=== PATIENT | male | born 1965 | race Two or more races ===

== ENCOUNTER 2024-02-03 09:20 | Inpatient (IN) | payer OTHER ==
[~2024-02-03] VITALS: Ht 160 cm; Wt 59.4 kg
[2024-02-03] MEDS ORDERED: ATORVASTATIN CA40 MG PO (11:07)
[2024-02-03] MEDS ORDERED: JARDIANCE10 MG PO (11:07)
[2024-02-03] MEDS ORDERED: GLUMETZA500 MG PO (11:08)
[2024-02-03] MEDS ORDERED: HORIZANT300 MG PO (11:08)
[2024-02-03] MEDS ORDERED: CORRECTOL5 MG PO (11:09)
[2024-02-03] MEDS ORDERED: DAILY MULTIVIT1 EAC4 PO (11:09)
[2024-02-03] MEDS ORDERED: DEXTROSE 50 % IN WATER 0.5 G/ML VIAL IV ONE (11:30)
[2024-02-03] MEDS ORDERED: VANCOMYCIN HCL 1,000 MG VIAL IV STA (11:34)
[2024-02-03] MEDS ORDERED: VANCOMYCIN HCL 1,000 MG VIAL ONE (13:12)
[2024-02-03 13:32] LABS: HEMATOCRIT 38.6 % (39.0-48.0); HEMOGLOBIN 12.8 g/dL (13-16.00); MEAN CELL VOLUME 84.3 fL (80.0-100.00); MEAN CORPUSCULAR HEMOGLOBIN 28.1 pg (27.00-32.0); MEAN CORPUSCULAR HGB CONC 33.3 g/dl (32.0-36.0); PLATELET COUNT 212 K/uL (150-450); RED BLOOD COUNT 4.57 M/uL (4.00-6.00); RED CELL DISTRIBUTION WIDTH 14.5 % (11.5-14.5)
[2024-02-03 14:16] LABS: ALBUMIN 3.6 gm/dL (3.4-5.0); BILIRUBIN TOTAL 0.89 mg/dL (0.3-1.2); CALCIUM 10.1 mg/dL (8.5-10.1); CREATININE SERUM 1.12 mg/dL (0.70-1.30); GFR 67.82; POTASSIUM 4.35 mEq/L (3.5-5.1); TOTAL PROTEIN 8.8 gm/dL (6.4-8.2)
[2024-02-03 14:28] LABS: BILIRUBIN,CONJUGATED 0.2 mg/dL (0.0-0.2); BILIRUBIN,UNCONJUGATED 0.69 mg/dL (0.0-0.6)
[2024-02-03] MEDS ORDERED: INSULIN REGULAR, HUMAN 1,000 UNIT/10 ML UNITS IV STA (15:48)
[2024-02-03] MEDS ORDERED: GABAPENTIN 300 MG CAPSULE PO SCH (18:23)
[2024-02-03] MEDS ORDERED: PIPERACILLIN/TAZOBACTAM SODIUM 3.375 GM in DEXTROSE 5 % IN WATER 100 ML IV SCH (18:23)
[2024-02-03] MEDS ORDERED: INSULIN LISPRO 1,000 UNIT/10 ML UNITS SUBCUTANEO PRN (18:30)
[2024-02-03] MEDS ORDERED: DEXTROSE 50 % IN WATER 0.5 G/ML DISP.SYRIN IV PRN (18:30)
[2024-02-03] MEDS ORDERED: ACETAMINOPHEN 500 MG GEL..CAP PO PRN (18:30)
[2024-02-03] MEDS ORDERED: 0.9 % SODIUM CHLORIDE 1,000 ML IV SCH (18:30)
[2024-02-03] MEDS ORDERED: ENALAPRILAT DIHYDRATE 1.25 MG/ML VIAL IV PRN (18:30)
[2024-02-03 21:06] LABS: INR 0.97; PARTIAL THROMBOPLASTIN TIME 25.6 SECONDS (22.0-34.0); PROTHROMBIN TIME 10.6 SECONDS (9.0-11.5)
[2024-02-03] MEDS ORDERED: PIPERACILLIN/TAZOBACTAM SODIUM 3.375 GM VIAL IV ONE (21:20)
[2024-02-04 02:03] VITALS: BP 140/70
[2024-02-04 05:00] VITALS: BP 130/82; O2SAT 98
[2024-02-04] MEDS ORDERED: INSULIN NPH HUM/REG INSULIN HM 1,000 UNIT/10 ML UNITS SUBCUTANEO SCH ×2 (08:00→17:00)
[2024-02-04] MEDS ORDERED: FAMOTIDINE/PF 20 MG in 0.9 % SODIUM CHLORIDE 8 ML IV PUSH SCH (09:00)
[2024-02-04] MEDS ORDERED: ENOXAPARIN SODIUM 40 MG/0.4 ML SYRINGE SUBCUTANEO SCH (09:00)
[2024-02-04] MEDS ORDERED: ATORVASTATIN CALCIUM 40 MG TABLET PO SCH (09:00)
[2024-02-04] MEDS ORDERED: VANCOMYCIN HCL 1,000 MG VIAL IV SCH (09:00)
[2024-02-04 09:14] VITALS: BP 134/79; O2SAT 99
[2024-02-04 10:25] LABS: CALCIUM 9.2 mg/dL (8.5-10.1); CREATININE SERUM 0.76 mg/dL (0.70-1.30); GFR 106.09; POTASSIUM 4.2 mEq/L (3.5-5.1); TSH 0.688 uIU/mL (0.358-3.74)
[2024-02-04] MEDS ORDERED: MORPHINE SULFATE 2 MG/ML CARTRIDGE IV PRN (15:30)
[2024-02-04 19:06] VITALS: BP 109/58
[2024-02-05 02:45] VITALS: BP 111/62; O2SAT 96
[2024-02-05] MEDS ORDERED: PATIENTS OWN MEDICATION (MEDICAMENTO EN PISO) PO SCH (09:00)
[2024-02-05 10:07] VITALS: BP 153/89; O2SAT 98
[2024-02-05] MEDS ORDERED: TRAMADOL HCL 50 MG TABLET PO PRN (11:30)
[2024-02-05] MEDS ORDERED: LACTULOSE 20 G/30 ML BLIST.PACK PO NR (12:00)
[2024-02-05] MEDS ORDERED: MINERAL OIL 30 ML BLIST.PACK PO NR (12:00)
[2024-02-05] MEDS ORDERED: MAGNESIUM HYDROXIDE 30 ML BLIST.PACK PO NR (12:00)
[2024-02-05 12:20] LABS: HEMATOCRIT 36.8 % (39.0-48.0); HEMOGLOBIN 12.1 g/dL (13-16.00); MEAN CELL VOLUME 84.9 fL (80.0-100.00); MEAN CORPUSCULAR HEMOGLOBIN 27.9 pg (27.00-32.0); MEAN CORPUSCULAR HGB CONC 32.9 g/dl (32.0-36.0); PLATELET COUNT 251 K/uL (150-450); RED BLOOD COUNT 4.34 M/uL (4.00-6.00); RED CELL DISTRIBUTION WIDTH 14.3 % (11.5-14.5)
[2024-02-05 12:42] LABS: CALCIUM 9.1 mg/dL (8.5-10.1); CREATININE SERUM 0.69 mg/dL (0.70-1.30); GFR 118.61; POTASSIUM 3.88 mEq/L (3.5-5.1)
[2024-02-05 17:25] VITALS: BP 145/65; O2SAT 100
[2024-02-05] MEDS ORDERED: VANCOMYCIN HCL 1,000 MG VIAL IV SCH (21:00)
[2024-02-06] MEDS ORDERED: PIPERACILLIN/TAZOBACTAM SODIUM 3.375 GM in DEXTROSE 5 % IN WATER 100 ML IV SCH (01:00)
[2024-02-07] MEDS ORDERED: TRAMADOL HCL 50 MG TABLET PO PRN (14:00)
[2024-02-07 18:00] VITALS: BP 152/85; O2SAT 96
[2024-02-08 01:53] VITALS: BP 121/73; O2SAT 95
[2024-02-08 08:56] VITALS: BP 104/62; O2SAT 98
[2024-02-08] MEDS ORDERED: INSULIN LISPRO 1,000 UNIT/10 ML UNITS SUBCUTANEO STA (08:57)
[2024-02-08] MEDS ORDERED: INSULIN GLARGINE,HUM.REC.ANLOG 1,000 UNITS/10 ML UNITS SUBCUTANEO SCH (09:00)
[2024-02-08] MEDS ORDERED: INSULIN LISPRO 1,000 UNIT/10 ML UNITS SUBCUTANEO SCH (12:00)
[2024-02-08 12:35] LABS: HEMATOCRIT 38.7 % (39.0-48.0); HEMOGLOBIN 13.2 g/dL (13-16.00); MEAN CELL VOLUME 83.4 fL (80.0-100.00); MEAN CORPUSCULAR HEMOGLOBIN 28.5 pg (27.00-32.0); MEAN CORPUSCULAR HGB CONC 34.2 g/dl (32.0-36.0); PLATELET COUNT 349 K/uL (150-450); RED BLOOD COUNT 4.64 M/uL (4.00-6.00); RED CELL DISTRIBUTION WIDTH 14.4 % (11.5-14.5)
[2024-02-08 13:30] LABS: ALBUMIN 3.6 gm/dL (3.4-5.0); BILIRUBIN TOTAL 0.5 mg/dL (0.3-1.2); CALCIUM 9.8 mg/dL (8.5-10.1); CREATININE SERUM 0.91 mg/dL (0.70-1.30); GFR 86.18; GLOBULINA 4.7 G/DL (2.4-3.5); POTASSIUM 4.03 mEq/L (3.5-5.1); TOTAL PROTEIN 8.3 gm/dL (6.4-8.2)
[2024-02-08 18:21] VITALS: BP 153/85; O2SAT 95
[2024-02-09 01:22] VITALS: BP 145/83
[2024-02-09] MEDS ORDERED: INSULIN LISPRO 1,000 UNIT/10 ML UNITS SUBCUTANEO SCH (08:00)
[2024-02-09] MEDS ORDERED: INSULIN GLARGINE,HUM.REC.ANLOG 1,000 UNITS/10 ML UNITS SUBCUTANEO SCH (09:00)
[2024-02-09 09:35] VITALS: BP 147/82; O2SAT 98
[2024-02-09 17:34] VITALS: BP 160/91; O2SAT 100
[2024-02-10 01:18] VITALS: BP 146/80; O2SAT 98
[2024-02-10 06:43] LABS: HEMOGLOBIN 11.8 g/dL (13-16.00); MEAN CELL VOLUME 84.3 fL (80.0-100.00); MEAN CORPUSCULAR HEMOGLOBIN 27.5 pg (27.00-32.0); MEAN CORPUSCULAR HGB CONC 32.6 g/dl (32.0-36.0); PLATELET COUNT 319 K/uL (150-450); RED BLOOD COUNT 4.27 M/uL (4.00-6.00); RED CELL DISTRIBUTION WIDTH 14.4 % (11.5-14.5)
[2024-02-10 07:48] LABS: ALBUMIN 3.1 gm/dL (3.4-5.0); BILIRUBIN TOTAL 0.4 mg/dL (0.3-1.2); CALCIUM 9.4 mg/dL (8.5-10.1); CREATININE SERUM 0.74 mg/dL (0.70-1.30); GFR 109.41; GLOBULINA 3.9 G/DL (2.4-3.5); POTASSIUM 4.46 mEq/L (3.5-5.1)
[2024-02-10 09:35] VITALS: BP 135/68; O2SAT 100
[2024-02-10 18:06] VITALS: BP 147/87; O2SAT 98
[2024-02-10] MEDS ORDERED: TRAMADOL HCL 50 MG TABLET PO PRN (20:30)
[2024-02-11 02:23] VITALS: BP 131/74; O2SAT 97
[2024-02-11] MEDS ORDERED: DEXTROSE 5%-WATER 100ML IV.SOLN ONE (02:57)
[2024-02-11] MEDS ORDERED: INSULIN GLARGINE,HUM.REC.ANLOG 1,000 UNITS/10 ML UNITS SUBCUTANEO SCH (09:00)
[2024-02-11 10:51] VITALS: BP 152/82; O2SAT 99
== END 2024-02-11 15:24 | DRG 603 ==
LOC: ER 09:22 → MEDJ 18:32
PROVIDERS: General Practice; Internal Medicine; Internal Medicine Endocrinology, Diabetes & Metabolism; Student in an Organized Health Care Education/Training Program; ADMIT Internal Medicine; ATTEND Internal Medicine
PROC: B54DZZZ Ultrasonography of Bilateral Lower Extremity Veins (ICD-10-PCS; principal; 2024-02-03)
PROC: B53CZZZ Magnetic Resonance Imaging (MRI) of Left Lower Extremity Veins (ICD-10-PCS; 2024-02-07)
PROC: 02HV33Z Insertion of Infusion Device into Superior Vena Cava, Percutaneous Approach (ICD-10-PCS; 2024-02-09)
DX: L03.032 Cellulitis of left toe (principal); E11.52 Type 2 diabetes mellitus with diabetic peripheral angiopathy with gangrene; I96 Gangrene, not elsewhere classified; R65.10 Systemic inflammatory response syndrome (SIRS) of non-infectious origin without acute organ dysfunction; M86.9 Osteomyelitis, unspecified; Z79.4 Long term (current) use of insulin; L97.529 Non-pressure chronic ulcer of other part of left foot with unspecified severity

== ENCOUNTER 2024-03-05 13:18 | Inpatient (IN) | payer OTHER ==
[~2024-03-05] VITALS: Ht 167.6 cm; Wt 63.5 kg
[~2024-03-05 13:18] MED LIST: ATORVASTATIN CA40 MG PO; CORRECTOL5 MG PO; DAILY MULTIVIT1 EAC4 PO; GLUMETZA500 MG PO; HORIZANT300 MG PO; JARDIANCE10 MG PO
[2024-03-05] MEDS ORDERED: PIPERACILLIN/TAZOBACTAM SODIUM 3.375 GM VIAL IV ONE ×3 (14:30→23:48)
[2024-03-05] MEDS ORDERED: 0.9 % SODIUM CHLORIDE 1,000 ML IV SCH ×2 (14:30→18:30)
[2024-03-05 16:02] LABS: HEMATOCRIT 37.3 % (39.0-48.0); HEMOGLOBIN 12.4 g/dL (13-16.00); MEAN CELL VOLUME 82.7 fL (80.0-100.00); MEAN CORPUSCULAR HEMOGLOBIN 27.6 pg (27.00-32.0); MEAN CORPUSCULAR HGB CONC 33.4 g/dl (32.0-36.0); PLATELET COUNT 220 K/uL (150-450); RED BLOOD COUNT 4.51 M/uL (4.00-6.00); RED CELL DISTRIBUTION WIDTH 14.7 % (11.5-14.5)
[2024-03-05 16:41] LABS: CALCIUM 10.3 mg/dL (8.5-10.1); CREATININE SERUM 0.74 mg/dL (0.70-1.30); GFR 109.41; POTASSIUM 4.12 mEq/L (3.5-5.1)
[2024-03-05] MEDS ORDERED: VANCOMYCIN HCL 1,000 MG VIAL IV SCH (18:28)
[2024-03-05] MEDS ORDERED: DEXTROSE 50 % IN WATER 0.5 G/ML DISP.SYRIN IV PRN (18:30)
[2024-03-05] MEDS ORDERED: ACETAMINOPHEN 500 MG GEL..CAP PO PRN (18:30)
[2024-03-05] MEDS ORDERED: INSULIN LISPRO 1,000 UNIT/10 ML UNITS SUBCUTANEO PRN (18:30)
[2024-03-05 23:21] VITALS: BP 108/67; O2SAT 100
[2024-03-06] MEDS ORDERED: PIPERACILLIN/TAZOBACTAM SODIUM 3.375 GM in DEXTROSE 5 % IN WATER 100 ML IV SCH
[2024-03-06 02:12] VITALS: BP 93/66
[2024-03-06 04:09] LABS: URINE APPEARANCE Clear; URINE BILIRRUBIN Negative (NEGATIVE); URINE BLOOD Negative; URINE COLOR Yellow; URINE KETONE Negative (NEGATIVE); URINE LEUKOCYTE Negative; URINE NITRATE Negative; URINE PROTEIN Negative (NEGATIVE); URINE UROBILINOGEN 0.2 E.U./dl
[2024-03-06 04:12] LABS: URINE RBC 4.5 uL (0.0-20.8)
[2024-03-06 04:28] LABS: URINE BACTERIA 1.2 uL (0.0-1933); URINE EPITHELIAL CELLS 0.9 uL (0.0-38.8); URINE GLUCOSE >=1000 MG/DL (NEGATIVE); URINE WBC 0.1 uL (0.0-23.2)
[2024-03-06] MEDS ORDERED: INSULIN LISPRO 1,000 UNIT/10 ML UNITS SUBCUTANEO SCH (08:00)
[2024-03-06 08:55] VITALS: BP 104/68; O2SAT 100
[2024-03-06] MEDS ORDERED: INSULIN GLARGINE,HUM.REC.ANLOG 1,000 UNITS/10 ML UNITS SUBCUTANEO SCH (09:00)
[2024-03-06] MEDS ORDERED: ATORVASTATIN CALCIUM 40 MG TABLET PO SCH (09:00)
[2024-03-06] MEDS ORDERED: ENOXAPARIN SODIUM 40 MG/0.4 ML SYRINGE SUBCUTANEO SCH (09:00)
[2024-03-06] MEDS ORDERED: FAMOTIDINE/PF 20 MG in 0.9 % SODIUM CHLORIDE 8 ML IV PUSH SCH ×2 (09:00→21:00)
[2024-03-06 15:00] LABS: INR 1.03; PROTHROMBIN TIME 11.2 SECONDS (9.0-11.5)
[2024-03-06 18:09] VITALS: BP 122/77
[2024-03-07 01:33] VITALS: BP 129/72; O2SAT 97
[2024-03-07 08:17] VITALS: BP 124/76; O2SAT 98
[2024-03-07] MEDS ORDERED: INSULIN GLARGINE,HUM.REC.ANLOG 1,000 UNITS/10 ML UNITS SUBCUTANEO NR (10:00)
[2024-03-07] MEDS ORDERED: TRAMADOL HCL 50 MG TABLET PO SCH (13:00)
[2024-03-07] MEDS ORDERED: PIPERACILLIN/TAZOBACTAM SODIUM 3.375 GM VIAL IV ONE (15:47)
[2024-03-07] MEDS ORDERED: GABAPENTIN 300 MG CAPSULE PO SCH (17:00)
[2024-03-07] MEDS ORDERED: ALPRAzolam 0.5 MG TABLET PO SCH (17:00)
[2024-03-07 17:08] VITALS: BP 137/72
[2024-03-08 02:19] VITALS: BP 135/76; O2SAT 99
[2024-03-08] MEDS ORDERED: FAMOTIDINE/PF 20 MG/2 ML VIAL ONE (07:53)
[2024-03-08] MEDS ORDERED: INSULIN GLARGINE,HUM.REC.ANLOG 1,000 UNITS/10 ML UNITS SUBCUTANEO SCH (09:00)
[2024-03-08 09:03] VITALS: BP 140/76
[2024-03-08 18:38] VITALS: BP 140/84
[2024-03-09 01:49] VITALS: BP 137/70
[2024-03-09 08:33] VITALS: BP 132/72
[2024-03-09 17:50] VITALS: BP 96/56
[2024-03-10 02:22] VITALS: BP 134/72; O2SAT 99
[2024-03-10 08:00] VITALS: BP 123/79
[2024-03-10] MEDS ORDERED: INSULIN LISPRO 1,000 UNIT/10 ML UNITS SUBCUTANEO PRN (13:45)
[2024-03-10] MEDS ORDERED: DEXTROSE 50 % IN WATER 0.5 G/ML DISP.SYRIN IV PRN (13:45)
[2024-03-10] MEDS ORDERED: 0.9 % SODIUM CHLORIDE 1,000 ML IV SCH (13:45)
[2024-03-10] MEDS ORDERED: ACETAMINOPHEN 500 MG GEL..CAP PO PRN (13:45)
[2024-03-10] MEDS ORDERED: PIPERACILLIN/TAZOBACTAM SODIUM 3.375 GM VIAL IV ONE (16:27)
[2024-03-10] MEDS ORDERED: GABAPENTIN 300 MG CAPSULE PO SCH (17:00)
[2024-03-10] MEDS ORDERED: TRAMADOL HCL 50 MG TABLET PO SCH (17:00)
[2024-03-10] MEDS ORDERED: ALPRAzolam 0.5 MG TABLET PO SCH (17:00)
[2024-03-10] MEDS ORDERED: INSULIN LISPRO 1,000 UNIT/10 ML UNITS SUBCUTANEO SCH (17:00)
[2024-03-10 17:55] VITALS: BP 150/80; O2SAT 97
[2024-03-10] MEDS ORDERED: PIPERACILLIN/TAZOBACTAM SODIUM 3.375 GM in 0.9 % SODIUM CHLORIDE 100 ML IV SCH (18:00)
[2024-03-10] MEDS ORDERED: FAMOTIDINE/PF 20 MG in 0.9 % SODIUM CHLORIDE 8 ML IV PUSH SCH (21:00)
[2024-03-11 01:25] VITALS: BP 139/69; O2SAT 98
[2024-03-11] MEDS ORDERED: ENOXAPARIN SODIUM 40 MG/0.4 ML SYRINGE SUBCUTANEO SCH (09:00)
[2024-03-11] MEDS ORDERED: ATORVASTATIN CALCIUM 40 MG TABLET PO SCH (09:00)
[2024-03-11] MEDS ORDERED: INSULIN GLARGINE,HUM.REC.ANLOG 1,000 UNITS/10 ML UNITS SUBCUTANEO SCH ×2 (09:00)
[2024-03-11] MEDS ORDERED: FAMOTIDINE/PF 20 MG in 0.9 % SODIUM CHLORIDE 8 ML IV PUSH SCH (09:00)
[2024-03-11 09:37] VITALS: BP 115/68
[2024-03-11] MEDS ORDERED: INSULIN GLARGINE,HUM.REC.ANLOG 1,000 UNITS/10 ML UNITS SUBCUTANEO NR (10:00)
[2024-03-11] MEDS ORDERED: PIPERACILLIN/TAZOBACTAM SODIUM 3.375 GM VIAL IV ONE (15:32)
[2024-03-11 17:33] VITALS: BP 136/74; O2SAT 96
[2024-03-12 00:33] VITALS: BP 90/62; O2SAT 97
[2024-03-12] MEDS ORDERED: INSULIN LISPRO 1,000 UNIT/10 ML UNITS SUBCUTANEO SCH (08:00)
[2024-03-12 08:53] VITALS: BP 111/59
[2024-03-12] MEDS ORDERED: INSULIN GLARGINE,HUM.REC.ANLOG 1,000 UNITS/10 ML UNITS SUBCUTANEO SCH ×2 (09:00→21:00)
[2024-03-12 16:50] VITALS: BP 140/77
[2024-03-12] MEDS ORDERED: FAMOTIDINE/PF 20 MG in 0.9 % SODIUM CHLORIDE 8 ML IV PUSH SCH (21:00)
[2024-03-13 01:17] VITALS: BP 110/63
[2024-03-13 08:07] VITALS: BP 109/65
== END 2024-03-13 16:43 | disposition home or self-care (01) | DRG 256 ==
LOC: ER 13:20 → SEC-K 20:51 → MEDJ 20:51 → SEC-K 03-06 00:25 → MEDJ 03-06 00:36
PROVIDERS: Emergency Medicine; Internal Medicine; Student in an Organized Health Care Education/Training Program; ADMIT Internal Medicine; ATTEND Internal Medicine
PROC: B44HZZZ Ultrasonography of Bilateral Lower Extremity Arteries (ICD-10-PCS; 2024-03-07)
PROC: 0Y6U0Z0 Detachment at Left 3rd Toe, Complete, Open Approach (ICD-10-PCS; principal; 2024-03-10 09:00)
DX: E11.52 Type 2 diabetes mellitus with diabetic peripheral angiopathy with gangrene (principal); I96 Gangrene, not elsewhere classified; M86.172 Other acute osteomyelitis, left ankle and foot; N17.9 Acute kidney failure, unspecified; E11.621 Type 2 diabetes mellitus with foot ulcer; L97.523 Non-pressure chronic ulcer of other part of left foot with necrosis of muscle; Z79.4 Long term (current) use of insulin; E78.5 Hyperlipidemia, unspecified

== ENCOUNTER 2024-06-20 14:43 | Emergency (ER) | payer OTHER ==
[~2024-06-20] VITALS: Ht 162.6 cm; Wt 54.9 kg
[2024-06-20] MEDS ORDERED: HUMALOG100 UNIT/2 SQ (15:06)
[2024-06-20] MEDS ORDERED: CEFTRIAXONE SODIUM 1,000 MG VIAL IM ONE (17:15)
[2024-06-20] MEDS ORDERED: LIDOCAINE HCL 1% 10ML VIAL ONE (17:27)
[2024-06-20] MEDS ORDERED: CEFTRIAXONE SODIUM 1,000 MG VIAL ONE (17:28)
[2024-06-20 17:58] LABS: BASO % 1.1 % (0.1-1.2); EOS # 0.15 (0.04-0.54); EOS % 2.4 % (0.7-7.0); HEMATOCRIT 37.7 % (40.1-51.0); HEMOGLOBIN 12.4 g/dL (13.7-17.5); LYMPH # 2.56 (1.18-3.74); LYMPH % 41.3 % (19.3-53.1); MEAN CORPUSCULAR HEMOGLOBIN 27.2 pg (25.6-32.2); MONO # 0.53 (0.24-0.82); MONO % 8.5 % (4.7-12.5); NEUT # 2.86 (1.56-6.13); NEUT % 46.2 % (34.0-71.1); PLATELET COUNT 280 K/uL (163-369); RED BLOOD COUNT 4.56 M/uL (4.63-6.08); RED CELL DISTRIBUTION WIDTH 13.5 % (11.6-14.4)
[2024-06-20 18:24] LABS: ALBUMIN 3.7 gm/dL (3.4-5.0); BILIRUBIN TOTAL 0.49 mg/dL (0.3-1.2); CALCIUM 9.3 mg/dL (8.5-10.1); CREATININE SERUM 1.22 mg/dL (0.70-1.30); GFR 61.45; GLOBULINA 4.5 G/DL (2.4-3.5); POTASSIUM 4.22 mEq/L (3.5-5.1); TOTAL PROTEIN 8.2 gm/dL (6.4-8.2)
[2024-06-20] MEDS ORDERED: INSULIN REGULAR, HUMAN 1,000 UNIT/10 ML UNITS IV ONE (18:45)
[2024-06-20] MEDS ORDERED: 0.9 % SODIUM CHLORIDE 1,000 ML IV ONE (18:45)
[2024-06-20] MEDS ORDERED: CEFUROXIME500 MG PO (22:10)
[2024-06-20] MEDS ORDERED: PEPCID AC20 MG PO (22:10)
== END 2024-06-20 22:32 | disposition home or self-care (01) ==
LOC: ER 15:12
PROVIDERS: General Practice
DX: L02.511 Cutaneous abscess of right hand (principal); E11.9 Type 2 diabetes mellitus without complications; Z79.84 Long term (current) use of oral hypoglycemic drugs

== ENCOUNTER 2024-06-29 20:48 | Inpatient (IN) | payer OTHER ==
[~2024-06-29] VITALS: Ht 175.3 cm; Wt 65.8 kg
[~2024-06-29 20:48] MED LIST changes: +CEFUROXIME500 MG PO; +HUMALOG100 UNIT/2 SQ; +PEPCID AC20 MG PO
[2024-06-29 22:33] LABS: BASO % 1.1 % (0.1-1.2); EOS # 0.15 (0.04-0.54); EOS % 1.6 % (0.7-7.0); HEMATOCRIT 39.9 % (40.1-51.0); HEMOGLOBIN 13.3 g/dL (13.7-17.5); LYMPH # 2.99 (1.18-3.74); LYMPH % 32.7 % (19.3-53.1); MEAN CORPUSCULAR HEMOGLOBIN 27.6 pg (25.6-32.2); MONO # 0.65 (0.24-0.82); MONO % 7.1 % (4.7-12.5); NEUT % 56.8 % (34.0-71.1); PLATELET COUNT 295 K/uL (163-369); RED BLOOD COUNT 4.82 M/uL (4.63-6.08); RED CELL DISTRIBUTION WIDTH 13.4 % (11.6-14.4)
[2024-06-29 22:51] LABS: ERYTHROCYTE SEDIMENTATION RATE 34 mm/hr (0-20)
[2024-06-29 23:06] LABS: ANION GAP 13 (10.0-20.0); BLOOD UREA NITROGEN 23 mg/dL (7-18); BUN CREA RATIO 27 (7.0-25.0); CALCIUM 9.2 mg/dL (8.5-10.1); CARBON DIOXIDE 26 mEq/L (21-32); CHLORIDE 100 mmol/L (98-107); CREATININE SERUM 0.86 mg/dL (0.70-1.30); GFR 91.99; POTASSIUM 4.78 mEq/L (3.5-5.1); SODIUM 134 mmol/L (136-145)
[2024-06-29 23:23] LABS: C-REACTIVE PROTEIN < 0.29 MG/DL (0.00-0.29); OSMOLALITY SERUM 289 MOSM/KG (275-295)
[2024-06-29 23:31] LABS: GLUCOSE FASTING 404 mg/dL (65-100)
[2024-06-29] MEDS ORDERED: 0.9 % SODIUM CHLORIDE 1,000 ML IV SCH (23:45)
[2024-06-29] MEDS ORDERED: ACETAMINOPHEN 500 MG GEL..CAP PO PRN (23:45)
[2024-06-29] MEDS ORDERED: DEXTROSE 50 % IN WATER 0.5 G/ML DISP.SYRIN IV PRN (23:45)
[2024-06-29] MEDS ORDERED: INSULIN LISPRO 1,000 UNIT/10 ML UNITS SUBCUTANEO PRN (23:45)
[2024-06-30] MEDS ORDERED: PIPERACILLIN/TAZOBACTAM SODIUM 3.375 GM in DEXTROSE 5 % IN WATER 100 ML IV SCH
[2024-06-30] MEDS ORDERED: PIPERACILLIN/TAZOBACTAM SODIUM 3.375 GM VIAL IV ONE (01:24)
[2024-06-30 02:23] LABS: INR < 0.93; PARTIAL THROMBOPLASTIN TIME 21.7 SECONDS (22.0-34.0); PROTHROMBIN TIME 10.2 SECONDS (9.0-11.5)
[2024-06-30 08:06] VITALS: BP 150/83
[2024-06-30] MEDS ORDERED: FAMOTIDINE/PF 20 MG in 0.9 % SODIUM CHLORIDE 8 ML IV PUSH SCH (09:00)
[2024-06-30] MEDS ORDERED: ATORVASTATIN CALCIUM 40 MG TABLET PO SCH (09:00)
[2024-06-30] MEDS ORDERED: ENOXAPARIN SODIUM 40 MG/0.4 ML SYRINGE SUBCUTANEO SCH (09:00)
[2024-06-30 18:01] VITALS: BP 129/79; O2SAT 100
[2024-07-01 01:35] VITALS: BP 142/80; O2SAT 97
[2024-07-01] MEDS ORDERED: INSULIN LISPRO 1,000 UNIT/10 ML UNITS SUBCUTANEO SCH (08:00)
[2024-07-01] MEDS ORDERED: INSULIN NPH HUM/REG INSULIN HM 1,000 UNIT/10 ML UNITS SUBCUTANEO STA (08:17)
[2024-07-01] MEDS ORDERED: INSULIN LISPRO 1,000 UNIT/10 ML UNITS SUBCUTANEO PRN (08:30)
[2024-07-01 08:53] VITALS: BP 118/77
[2024-07-01] MEDS ORDERED: INSULIN GLARGINE,HUM.REC.ANLOG 1,000 UNITS/10 ML UNITS SUBCUTANEO SCH (09:00)
[2024-07-01 17:00] VITALS: BP 95/62; O2SAT 99
[2024-07-01] MEDS ORDERED: INSULIN NPH HUM/REG INSULIN HM 1,000 UNIT/10 ML UNITS SUBCUTANEO SCH (17:00)
[2024-07-01] MEDS ORDERED: GABAPENTIN 100 MG CAPSULE PO SCH (21:00)
[2024-07-02 01:41] VITALS: BP 111/69; O2SAT 97
[2024-07-02] MEDS ORDERED: INSULIN NPH HUM/REG INSULIN HM 1,000 UNIT/10 ML UNITS SUBCUTANEO SCH (08:00)
[2024-07-02 08:03] LABS: CALCIUM 8.7 mg/dL (8.5-10.1); CREATININE SERUM 0.68 mg/dL (0.70-1.30); GFR 120.63; POTASSIUM 4.48 mEq/L (3.5-5.1)
[2024-07-02] MEDS ORDERED: GABAPENTIN 300 MG CAPSULE PO SCH (09:00)
[2024-07-02 09:02] VITALS: BP 123/75; O2SAT 100
[2024-07-02 16:37] VITALS: BP 102/67; O2SAT 95
[2024-07-03 00:51] VITALS: BP 90/50
[2024-07-03] MEDS ORDERED: INSULIN NPH HUM/REG INSULIN HM 1,000 UNIT/10 ML UNITS SUBCUTANEO SCH (08:00)
[2024-07-03 09:11] VITALS: BP 115/72; O2SAT 99
[2024-07-03] MEDS ORDERED: DOCUSATE SODIUM 100MG CAP PO SCH (17:00)
[2024-07-03 18:21] VITALS: BP 111/76; O2SAT 99
[2024-07-03 19:24] LABS: EOS # 0.17 (0.04-0.54); EOS % 2.1 % (0.7-7.0); HEMATOCRIT 38.3 % (40.1-51.0); HEMOGLOBIN 12.3 g/dL (13.7-17.5); LYMPH # 2.81 (1.18-3.74); LYMPH % 34.9 % (19.3-53.1); MEAN CORPUSCULAR HEMOGLOBIN 26.8 pg (25.6-32.2); MONO # 0.71 (0.24-0.82); MONO % 8.8 % (4.7-12.5); NEUT # 4.23 (1.56-6.13); NEUT % 52.6 % (34.0-71.1); PLATELET COUNT 306 K/uL (163-369); RED BLOOD COUNT 4.59 M/uL (4.63-6.08); RED CELL DISTRIBUTION WIDTH 13.7 % (11.6-14.4)
[2024-07-03 19:33] LABS: ERYTHROCYTE SEDIMENTATION RATE 44 mm/hr (0-20)
[2024-07-03 19:51] LABS: ALBUMIN 3.4 gm/dL (3.4-5.0); ALKALINE PHOSPHATASE 81 U/L (50-136); ALT/SGPT 20 U/L (12-78); ANION GAP 9 (10.0-20.0); AST/SGOT 12 U/L (15-37); BILIRUBIN TOTAL 0.55 mg/dL (0.3-1.2); BLOOD UREA NITROGEN 15 mg/dL (7-18); BUN CREA RATIO 17 (7.0-25.0); CALCIUM 9.6 mg/dL (8.5-10.1); CARBON DIOXIDE 32 mEq/L (21-32); CHLORIDE 101 mmol/L (98-107); CREATININE SERUM 0.86 mg/dL (0.70-1.30); GFR 91.99; GLOBULINA 3.7 G/DL (2.4-3.5); SODIUM 138 mmol/L (136-145); TOTAL PROTEIN 7.1 gm/dL (6.4-8.2)
[2024-07-03 20:01] LABS: C-REACTIVE PROTEIN < 0.29 MG/DL (0.00-0.29); OSMOLALITY SERUM 285 MOSM/KG (275-295)
[2024-07-03 20:44] LABS: GLUCOSE FASTING 246 mg/dL (65-100)
[2024-07-03] MEDS ORDERED: FAMOtidine 20 MG TABLET PO SCH (21:00)
[2024-07-04 01:56] VITALS: BP 98/66; O2SAT 96
[2024-07-04] MEDS ORDERED: PIPERACILLIN/TAZOBACTAM SODIUM 3.375 GM VIAL IV ONE (04:45)
[2024-07-04 08:37] VITALS: BP 118/78; O2SAT 99
[2024-07-04] MEDS ORDERED: NA PHOS,M-B/NA PHOS,DI-BA 1 BOTTLE ENEMA RECTAL NR (09:00)
[2024-07-04] MEDS ORDERED: LACTULOSE 20 G/30 ML BLIST.PACK PO NR (09:00)
[2024-07-04] MEDS ORDERED: MAGNESIUM HYDROXIDE 30 ML BLIST.PACK PO NR (09:00)
[2024-07-04] MEDS ORDERED: MINERAL OIL 30 ML BLIST.PACK PO NR (09:00)
== END 2024-07-04 13:53 | disposition home or self-care (01) | DRG 639 ==
LOC: ER 20:48 → MEDI 06-30 02:12 → MEDJ 06-30 02:12
PROVIDERS: General Practice; Internal Medicine Endocrinology, Diabetes & Metabolism; Internal Medicine Infectious Disease; ADMIT Internal Medicine; ATTEND Internal Medicine
PROC: BQ3LZZZ Magnetic Resonance Imaging (MRI) of Right Foot (ICD-10-PCS; principal; 2024-06-30)
DX: E11.621 Type 2 diabetes mellitus with foot ulcer (principal); L97.513 Non-pressure chronic ulcer of other part of right foot with necrosis of muscle; Z79.4 Long term (current) use of insulin; E78.5 Hyperlipidemia, unspecified
CPT/HCPCS: 73221

== ENCOUNTER 2024-07-20 18:30 | Inpatient (IN) | payer OTHER ==
[~2024-07-20] VITALS: Ht 162.6 cm; Wt 54.4 kg
[2024-07-20] MEDS ORDERED: FAMOtidine 10 MG/ML (4ML VIAL) IV ONE (19:15)
[2024-07-20] MEDS ORDERED: PIPERACILLIN/TAZOBACTAM SODIUM 3.375 GM VIAL IV ONE ×2 (19:15→19:35)
[2024-07-20] MEDS ORDERED: FAMOTIDINE/PF 20 MG/2 ML VIAL ONE (19:36)
[2024-07-20 19:38] LABS: BASO % 0.3 % (0.1-1.2); EOS # 0.04 (0.04-0.54); EOS % 0.2 % (0.7-7.0); HEMATOCRIT 36.1 % (40.1-51.0); HEMOGLOBIN 11.7 g/dL (13.7-17.5); LYMPH # 1.75 (1.18-3.74); LYMPH % 9.1 % (19.3-53.1); MEAN CORPUSCULAR HEMOGLOBIN 26.9 pg (25.6-32.2); MONO # 1.31 (0.24-0.82); MONO % 6.8 % (4.7-12.5); NEUT # 15.97 (1.56-6.13); NEUT % 83.1 % (34.0-71.1); PLATELET COUNT 214 K/uL (163-369); RED BLOOD COUNT 4.35 M/uL (4.63-6.08); RED CELL DISTRIBUTION WIDTH 13.3 % (11.6-14.4)
[2024-07-20 19:40] LABS: ERYTHROCYTE SEDIMENTATION RATE 119 mm/hr (0-20)
[2024-07-20 20:51] LABS: INR 1.04; PARTIAL THROMBOPLASTIN TIME 26.4 SECONDS (22.0-34.0); PROTHROMBIN TIME 11.3 SECONDS (9.0-11.5)
[2024-07-20 20:55] LABS: ALBUMIN 3.3 gm/dL (3.4-5.0); BILIRUBIN TOTAL 1.09 mg/dL (0.3-1.2); CALCIUM 9.7 mg/dL (8.5-10.1); CREATININE SERUM 1.37 mg/dL (0.70-1.30); GFR 53.75; GLOBULINA 4.8 G/DL (2.4-3.5); POTASSIUM 4.93 mEq/L (3.5-5.1); TOTAL PROTEIN 8.1 gm/dL (6.4-8.2)
[2024-07-20 21:08] LABS: C-REACTIVE PROTEIN 13.7 MG/DL (0.00-0.29)
[2024-07-20] MEDS ORDERED: 0.9 % SODIUM CHLORIDE 1,000 ML IV ONE (21:15)
[2024-07-20] MEDS ORDERED: INSULIN REGULAR, HUMAN 1,000 UNIT/10 ML UNITS IV ONE (21:15)
[2024-07-20] MEDS ORDERED: INSULIN LISPRO 1,000 UNIT/10 ML UNITS SUBCUTANEO PRN (23:45)
[2024-07-20] MEDS ORDERED: MORPHINE SULFATE 2 MG/ML SYRINGE IV PRN (23:45)
[2024-07-20] MEDS ORDERED: ACETAMINOPHEN 325 MG TABLET PO PRN (23:45)
[2024-07-20] MEDS ORDERED: DEXTROSE 50 % IN WATER 0.5 G/ML DISP.SYRIN IV PRN (23:45)
[2024-07-20] MEDS ORDERED: 0.9 % SODIUM CHLORIDE 1,000 ML IV SCH (23:45)
[2024-07-21] MEDS ORDERED: PIPERACILLIN/TAZOBACTAM SODIUM 3.375 GM in 0.9 % SODIUM CHLORIDE 100 ML IV SCH
[2024-07-21] MEDS ORDERED: PIPERACILLIN/TAZOBACTAM SODIUM 3.375 GM VIAL IV ONE (00:48)
[2024-07-21] MEDS ORDERED: INSULIN LISPRO 1,000 UNIT/10 ML UNITS SUBCUTANEO PRN (05:45)
[2024-07-21] MEDS ORDERED: INSULIN NPH HUM/REG INSULIN HM 1,000 UNIT/10 ML UNITS SUBCUTANEO SCH ×2 (08:00→17:00)
[2024-07-21 08:55] VITALS: BP 103/61
[2024-07-21] MEDS ORDERED: FAMOTIDINE/PF 20 MG in 0.9 % SODIUM CHLORIDE 100 ML IV SCH (09:00)
[2024-07-21] MEDS ORDERED: ATORVASTATIN CALCIUM 40 MG TABLET PO SCH (09:00)
[2024-07-21] MEDS ORDERED: PATIENTS OWN MEDICATION (MEDICAMENTO EN PISO) PO SCH (12:00)
[2024-07-21 17:17] VITALS: BP 125/81; O2SAT 98
[2024-07-22] VITALS: BP 116/74; O2SAT 100
[2024-07-22 08:36] LABS: PH,URINE 7.5 (5.0-8.0); URINE APPEARANCE Clear; URINE BILIRRUBIN Negative (NEGATIVE); URINE BLOOD Negative; URINE COLOR Yellow; URINE KETONE Negative (NEGATIVE); URINE LEUKOCYTE Negative; URINE NITRATE Negative; URINE PROTEIN Negative (NEGATIVE)
[2024-07-22 08:39] LABS: URINE BACTERIA 4.8 uL (0.0-1933); URINE RBC 6.5 uL (0.0-20.8)
[2024-07-22 08:43] VITALS: BP 130/76
[2024-07-22 09:44] LABS: URINE EPITHELIAL CELLS 0.1 uL (0.0-38.8); URINE GLUCOSE >=1000 MG/DL (NEGATIVE); URINE WBC 0 uL (0.0-23.2)
[2024-07-22 16:51] VITALS: BP 103/62; O2SAT 98
[2024-07-22] MEDS ORDERED: INSULIN NPH HUM/REG INSULIN HM 1,000 UNIT/10 ML UNITS SUBCUTANEO SCH (17:00)
[2024-07-23] VITALS: BP 102/61; O2SAT 96
[2024-07-23 07:00] VITALS: BP 107/65; O2SAT 95
[2024-07-23 13:18] LABS: ALBUMIN 2.8 gm/dL (3.4-5.0); BILIRUBIN TOTAL 0.93 mg/dL (0.3-1.2); CALCIUM 9.2 mg/dL (8.5-10.1); CREATININE SERUM 0.67 mg/dL (0.70-1.30); GFR 122.7; GLOBULINA 3.9 G/DL (2.4-3.5); POTASSIUM 4.54 mEq/L (3.5-5.1); TOTAL PROTEIN 6.7 gm/dL (6.4-8.2)
[2024-07-23 15:25] LABS: BASO % 0.8 % (0.1-1.2); EOS # 0.19 (0.04-0.54); EOS % 1.6 % (0.7-7.0); HEMOGLOBIN 11.5 g/dL (13.7-17.5); LYMPH # 2.32 (1.18-3.74); LYMPH % 19.1 % (19.3-53.1); MONO % 7.4 % (4.7-12.5); NEUT # 8.54 (1.56-6.13); NEUT % 70.5 % (34.0-71.1); PLATELET COUNT 283 K/uL (163-369); RED BLOOD COUNT 4.11 M/uL (4.63-6.08); RED CELL DISTRIBUTION WIDTH 13.4 % (11.6-14.4)
[2024-07-23] MEDS ORDERED: EMPAGLIFLOZIN 10 MG TABLET PO SCH (17:00)
[2024-07-23] MEDS ORDERED: PIPERACILLIN/TAZOBACTAM SODIUM 3.375 GM VIAL IV ONE (18:49)
[2024-07-23 21:44] VITALS: BP 136/83; O2SAT 99
[2024-07-23] MEDS ORDERED: MORPHINE SULFATE 4 MG/ML CARTRIDGE IV PRN (21:45)
[2024-07-24 00:16] VITALS: BP 127/78; O2SAT 94
[2024-07-24 07:00] VITALS: BP 130/74; O2SAT 98
[2024-07-24] MEDS ORDERED: EMPAGLIFLOZIN 10 MG TABLET PO SCH (09:10)
[2024-07-24] MEDS ORDERED: GABAPENTIN 300 MG CAPSULE PO NR (10:35)
[2024-07-24] MEDS ORDERED: FAMOtidine 20 MG TABLET PO SCH (17:00)
[2024-07-24] MEDS ORDERED: GABAPENTIN 300 MG CAPSULE PO SCH (17:00)
[2024-07-24 17:11] VITALS: BP 111/73; O2SAT 97
[2024-07-25 01:21] VITALS: BP 120/71; O2SAT 99
[2024-07-25 11:51] LABS: BASO % 1.1 % (0.1-1.2); EOS # 0.25 (0.04-0.54); EOS % 2.6 % (0.7-7.0); HEMOGLOBIN 11.2 g/dL (13.7-17.5); LYMPH # 2.11 (1.18-3.74); LYMPH % 22.3 % (19.3-53.1); MEAN CORPUSCULAR HEMOGLOBIN 27.1 pg (25.6-32.2); MONO # 0.73 (0.24-0.82); MONO % 7.7 % (4.7-12.5); NEUT # 6.15 (1.56-6.13); NEUT % 64.9 % (34.0-71.1); PLATELET COUNT 334 K/uL (163-369); RED BLOOD COUNT 4.14 M/uL (4.63-6.08); RED CELL DISTRIBUTION WIDTH 13.3 % (11.6-14.4)
[2024-07-25 12:05] LABS: ERYTHROCYTE SEDIMENTATION RATE 52 mm/hr (0-20)
[2024-07-25 13:16] LABS: BILIRUBIN TOTAL 0.57 mg/dL (0.3-1.2); CALCIUM 9.7 mg/dL (8.5-10.1); CREATININE SERUM 0.84 mg/dL (0.70-1.30); GFR 94.52; GLOBULINA 4.1 G/DL (2.4-3.5); POTASSIUM 4.53 mEq/L (3.5-5.1); TOTAL PROTEIN 7.1 gm/dL (6.4-8.2)
[2024-07-25 13:18] LABS: C-REACTIVE PROTEIN 4.68 MG/DL (0.00-0.29)
[2024-07-25] MEDS ORDERED: PIPERACILLIN/TAZOBACTAM SODIUM 3.375 GM VIAL IV ONE (16:05)
[2024-07-25 18:07] VITALS: BP 103/62; O2SAT 98
[2024-07-26 00:19] VITALS: BP 149/70; O2SAT 97
[2024-07-26] MEDS ORDERED: MORPHINE SULFATE 4 MG/ML CARTRIDGE IV SCH (01:00)
[2024-07-26] MEDS ORDERED: MORPHINE SULFATE 2 MG/ML CARTRIDGE IV SCH (09:00)
[2024-07-26 10:22] VITALS: BP 115/71; O2SAT 98
[2024-07-26] MEDS ORDERED: PIPERACILLIN/TAZOBACTAM SODIUM 3.375 GM VIAL IV ONE (15:44)
[2024-07-26 16:00] VITALS: BP 127/72; O2SAT 100
[2024-07-27 00:32] VITALS: BP 105/64; O2SAT 98
[2024-07-27] MEDS ORDERED: INSULIN NPH HUM/REG INSULIN HM 1,000 UNIT/10 ML UNITS SUBCUTANEO SCH (08:00)
[2024-07-27 10:23] VITALS: BP 154/75; O2SAT 97
[2024-07-27 17:10] VITALS: BP 017/66
[2024-07-28 00:46] VITALS: BP 116/68; O2SAT 99
[2024-07-28] MEDS ORDERED: MORPHINE SULFATE 2 MG/ML CARTRIDGE IV SCH (09:49)
[2024-07-28] MEDS ORDERED: GABAPENTIN 600 MG TABLET PO SCH (09:54)
[2024-07-28 10:02] VITALS: BP 127/73; O2SAT 96
[2024-07-28 16:13] VITALS: BP 126/70; O2SAT 98
[2024-07-29 00:17] VITALS: BP 118/70
[2024-07-29] MEDS ORDERED: ACETAMINOPHEN 500 MG GEL..CAP PO PRN (00:45)
[2024-07-29 08:25] VITALS: BP 131/72; O2SAT 98
[2024-07-29] MEDS ORDERED: INSULIN NPH HUM/REG INSULIN HM 1,000 UNIT/10 ML UNITS SUBCUTANEO SCH (17:00)
[2024-07-29 17:46] VITALS: BP 127/95
[2024-07-30 00:48] VITALS: BP 104/65; O2SAT 96
[2024-07-30 09:00] VITALS: BP 116/67; O2SAT 98
== END 2024-07-30 11:12 | disposition home or self-care (01) | DRG 580 ==
LOC: ER 18:30 → MEDI 07-21 00:34
PROVIDERS: General Practice; Surgery; ADMIT Internal Medicine; ATTEND Internal Medicine
PROC: B44HZZZ Ultrasonography of Bilateral Lower Extremity Arteries (ICD-10-PCS; 2024-07-21)
PROC: BQ3PZZZ Magnetic Resonance Imaging (MRI) of Right Toe(s) (ICD-10-PCS; 2024-07-21)
PROC: 0J9Q0ZZ Drainage of Right Foot Subcutaneous Tissue and Fascia, Open Approach (ICD-10-PCS; 2024-07-23)
PROC: 0JCQ0ZZ Extirpation of Matter from Right Foot Subcutaneous Tissue and Fascia, Open Approach (ICD-10-PCS; principal; 2024-07-23 18:00)
PROC: 02HV33Z Insertion of Infusion Device into Superior Vena Cava, Percutaneous Approach (ICD-10-PCS; 2024-07-28)
PROC: B548ZZA Ultrasonography of Superior Vena Cava, Guidance (ICD-10-PCS; 2024-07-28)
DX: S90.851A Superficial foreign body, right foot, initial encounter (principal); E11.52 Type 2 diabetes mellitus with diabetic peripheral angiopathy with gangrene; L97.419 Non-pressure chronic ulcer of right heel and midfoot with unspecified severity; L02.611 Cutaneous abscess of right foot; M86.671 Other chronic osteomyelitis, right ankle and foot; L03.115 Cellulitis of right lower limb; E11.621 Type 2 diabetes mellitus with foot ulcer; E11.65 Type 2 diabetes mellitus with hyperglycemia; E78.5 Hyperlipidemia, unspecified; W45.8XXA Other foreign body or object entering through skin, initial encounter; Y92.9 Unspecified place or not applicable; Z79.84 Long term (current) use of oral hypoglycemic drugs; Z89.421 Acquired absence of other right toe(s); Z79.4 Long term (current) use of insulin; B95.61 Methicillin susceptible Staphylococcus aureus infection as the cause of diseases classified elsewhere
CPT/HCPCS: 73725

== ENCOUNTER 2024-12-14 15:48 | Emergency (ER) | payer OTHER ==
[~2024-12-14] VITALS: Ht 170.2 cm; Wt 65.8 kg
[2024-12-14] MEDS ORDERED: 0.9 % SODIUM CHLORIDE 1,000 ML IV ONE (17:00)
[2024-12-14] MEDS ORDERED: FAMOTIDINE/PF 20 MG/2 ML VIAL IV ONE (17:00)
[2024-12-14] MEDS ORDERED: ONDANSETRON HCL 2 MG/ML VIAL IV ONE (17:00)
[2024-12-14] MEDS ORDERED: FAMOTIDINE/PF 20 MG/2 ML VIAL ONE (17:04)
[2024-12-14] MEDS ORDERED: ONDANSETRON HCL 2 MG/ML VIAL ONE (17:04)
[2024-12-14 17:52] LABS: BASO % 0.3 % (0.1-1.2); EOS # 0.00 (0.04-0.54); EOS % 0.0 % (0.7-7.0); LYMPH # 1.57 (1.18-3.74); LYMPH % 11.8 % (19.3-53.1); MEAN PLATELET VOLUME 12.50 fl (9.4-12.4); MONO # 0.70 (0.24-0.82); MONO % 5.3 % (4.7-12.5); NEUT # 10.91 (1.56-6.13); NEUT % 82.4 % (34.0-71.1); RED CELL DISTRIBUTION WIDTH 13.4 % (11.6-14.4)
[2024-12-14 18:13] LABS: INR 0.98
[2024-12-14 18:19] LABS: ALT/SGPT 26.0 U/L (12-78); AST/SGOT 18.0 U/L (15-37); BILIRUBIN TOTAL 2.21 mg/dL (0.3-1.2); BUN CREA RATIO 19.0 (7.0-25.0); CREATININE SERUM 1.24 mg/dL (0.70-1.30); GFR 60.09; GLOBULINA 4.4 G/DL (2.4-3.5); OSMOLALITY SERUM 289.0 MOSM/KG (275-295)
[2024-12-14 18:48] LABS: GLUCOSE FASTING 434.0 mg/dL (65-100)
[2024-12-14] MEDS ORDERED: INSULIN REGULAR, HUMAN 1,000 UNIT/10 ML UNITS IV ONE (19:45)
[2024-12-14] MEDS ORDERED: METFORMIN HCL1000 M2 PO (22:04)
[2024-12-14] MEDS ORDERED: HUMULIN 70100 UNIT/2 SUBCUTANEO (22:04)
== END 2024-12-14 22:58 | disposition home or self-care (01) ==
LOC: ER 15:48
DX: K52.89 Other specified noninfective gastroenteritis and colitis (principal); E11.65 Type 2 diabetes mellitus with hyperglycemia; Z79.4 Long term (current) use of insulin